=== PATIENT | male | born 2005 | race Caucasian/White ===

== ENCOUNTER 2025-01-25 16:16 | Emergency (ER) | payer MEDICAID ==
[~2025-01-25] VITALS: Ht 177.8 cm; Wt 68.0 kg
[2025-01-25 16:33] VITALS: TEMP 99
[2025-01-25 19:26] VITALS: BP 115/62; O2SAT 98
== END 2025-01-25 19:00 | disposition home or self-care (01) ==
LOC: ER 16:16
DX: S00.83XA Contusion of other part of head, initial encounter (principal); F17.200 Nicotine dependence, unspecified, uncomplicated; Z88.0 Allergy status to penicillin; V49.88XA Car occupant (driver) (passenger) injured in other specified transport accidents, initial encounter; Y93.89 Activity, other specified; Y92.415 Exit ramp or entrance ramp of street or highway as the place of occurrence of the external cause; Y99.8 Other external cause status
CPT/HCPCS: 70486-TC